=== PATIENT | female | born 1965 | race Caucasian/White ===

== ENCOUNTER 2018-04-14 14:04 | Outpatient (CLI) | payer BC ==
--- NOTE | 2018-04-14 14:59 | RAD ---
RIGHT KNEE FOUR VIEWS: History: Anterior and lateral knee pain. FINDINGS/IMPRESSION: No fracture, dislocation, or bony destruction is identified. No significant osteophytosis is identifi ed. POS: C
== END 2018-04-14 14:05 | disposition home or self-care (01) ==
LOC: SCSRAD 14:04
PROVIDERS: ATTEND Family Medicine
DX: M25.561 Pain in right knee (principal)

== ENCOUNTER 2018-08-14 11:55 | Outpatient (CLI) | payer BC | END 2018-08-14 11:56 | disposition home or self-care (01) | LOC: BICMAMMO 11:55 | PROVIDERS: ATTEND Obstetrics & Gynecology | DX: Z12.31 Encounter for screening mammogram for malignant neoplasm of breast (principal) | CPT/HCPCS: 77063; 77067 ==

== ENCOUNTER 2019-07-03 08:14 | Outpatient (CLI) | payer BC ==
--- NOTE | 2019-07-03 09:57 | RAD ---
CHEST 2 VIEWS: Date: 07/03/19 HISTORY: Rheumatoid arthritis, M06.09. COMPARISON: None. FINDINGS: Lungs are clear. No pneumothorax or effusion. Cardiac silhouette and mediastinal contours within norm al limits. There is some scarring in the right lung apex. Right upper quadrant surgical clips. IMPRESSION: Right apical scar. Otherwise unremarkable exam. POS: CET
== END 2019-07-03 08:15 | disposition home or self-care (01) ==
LOC: BICRAD 08:14
PROVIDERS: ATTEND Internal Medicine Rheumatology
DX: M06.09 Rheumatoid arthritis without rheumatoid factor, multiple sites (principal); L90.5 Scar conditions and fibrosis of skin
CPT/HCPCS: 71046

== ENCOUNTER 2019-08-17 08:22 | Outpatient (CLI) | payer BC ==
--- NOTE | 2019-08-17 08:56 | MMO ---
Bilateral MAMMO Bilat Screen [facility]. CLINICAL HISTORY: Patient is 54 years old and is seen for screening. The patient has no family history of breast cancer. The patient has no personal history of cancer. VIEWS: The views performed were: bilateral craniocaudal with tomosynthesis and bilateral mediolateral oblique with tomosynthesis. FILMS COMPARED: The present examination has been compared to prior imaging studies performed at [facility] on 08/24/2013, 12/28/2014, 08/13/2017 and 08/14/2018. This study has been interpreted with the assistance of computer-aided detection. MAMMOGRAM FINDINGS: There are scattered fibroglandular densities. There are no suspicious masses, suspicious calcifications, or new areas of architectural distortion. IMPRESSION: THERE IS NO MAMMOGRAPHIC EVIDENCE OF MALIGNANCY. A ROUTINE FOLLOW-UP MAMMOGRAM IN 1 YEAR IS RECOMMENDED. THE RESULTS OF THIS EXAM WERE SENT TO THE PATIENT. ACR BI-RADS Category 1 - Negative MAMMOGRAPHY NOTE: 1. A negative mammogram report should not delay a biopsy if a dominant of clinically suspicious mass is present. 2. Approximately 10% to 15% of breast cancers are not detected by mammography. 3. Adenosis and dense breasts may obscure an underlying neoplasm. Reported by: JULISSA MANSFIELD MD Electonically Signed: [id number]
== END 2019-08-17 08:23 | disposition home or self-care (01) ==
LOC: BICMAMMO 08:22
PROVIDERS: ATTEND Family Medicine
DX: Z12.31 Encounter for screening mammogram for malignant neoplasm of breast (principal)
CPT/HCPCS: 77063; 77067

== ENCOUNTER 2020-08-17 10:21 | Outpatient (CLI) | payer BC ==
--- NOTE | 2020-08-17 11:20 | MMO ---
Bilateral MAMMO Bilat Screen [facility]. CLINICAL HISTORY: Patient is 55 years old and is seen for screening. The patient has no family history of breast cancer. The patient has no personal history of cancer. VIEWS: The views performed were: bilateral craniocaudal with tomosynthesis and bilateral mediolateral oblique with tomosynthesis. FILMS COMPARED: The present examination has been compared to prior imaging studies performed at [facility] on 12/28/2014, 08/13/2017, 08/14/2018 and 08/17/2019. This study has been interpreted with the assistance of computer-aided detection. MAMMOGRAM FINDINGS: There are scattered fibroglandular densities. There are no suspicious masses, suspicious calcifications, or new areas of architectural distortion. IMPRESSION: THERE IS NO MAMMOGRAPHIC EVIDENCE OF MALIGNANCY. A ROUTINE FOLLOW-UP MAMMOGRAM IN 1 YEAR IS RECOMMENDED. THE RESULTS OF THIS EXAM WERE SENT TO THE PATIENT. ACR BI-RADS Category 1 - Negative MAMMOGRAPHY NOTE: 1. A negative mammogram report should not delay a biopsy if a dominant of clinically suspicious mass is present. 2. Approximately 10% to 15% of breast cancers are not detected by mammography. 3. Adenosis and dense breasts may obscure an underlying neoplasm. Reported by: VIOLA POWERS MD Electonically Signed: [id number]
== END 2020-08-17 10:22 | disposition home or self-care (01) ==
LOC: BICMAMMO 10:21
PROVIDERS: ATTEND Family Medicine
DX: Z12.31 Encounter for screening mammogram for malignant neoplasm of breast (principal)
CPT/HCPCS: 77063; 77067

== ENCOUNTER 2022-05-09 15:01 | Outpatient (CLI) | payer BC | END 2022-05-09 15:02 | disposition home or self-care (01) | LOC: CTENTCT 15:01 | PROVIDERS: ATTEND Student in an Organized Health Care Education/Training Program | DX: J32.9 Chronic sinusitis, unspecified (principal) | CPT/HCPCS: 70486 ==

== ENCOUNTER 2022-10-24 09:21 | Outpatient (CLI) | payer BC | END 2022-10-24 09:22 | disposition home or self-care (01) | LOC: BICRAD 09:21 | PROVIDERS: ATTEND Family Medicine | DX: S99.922A Unspecified injury of left foot, initial encounter (principal); S92.525A Nondisplaced fracture of middle phalanx of left lesser toe(s), initial encounter for closed fracture ==

== ENCOUNTER 2023-01-16 14:07 | Outpatient (CLI) | payer BC | END 2023-01-16 14:08 | disposition home or self-care (01) | LOC: BICMAMMO 14:07 | PROVIDERS: ATTEND Family Medicine | DX: Z12.31 Encounter for screening mammogram for malignant neoplasm of breast (principal) | CPT/HCPCS: 77063; 77067 ==

== ENCOUNTER 2023-04-17 08:39 | Outpatient (CLI) | payer BC | END 2023-04-17 08:40 | disposition home or self-care (01) | LOC: BICMRI 08:39 | PROVIDERS: ATTEND Psychiatry & Neurology Neurology | DX: M05.89 Other rheumatoid arthritis with rheumatoid factor of multiple sites (principal) | CPT/HCPCS: 72148 ==

== ENCOUNTER 2023-09-04 11:10 | Outpatient (CLI) | payer BC | END 2023-09-04 11:11 | disposition home or self-care (01) | LOC: BICRAD 11:10 | PROVIDERS: ATTEND Internal Medicine Rheumatology | DX: M17.0 Bilateral primary osteoarthritis of knee (principal); M19.011 Primary osteoarthritis, right shoulder; M19.012 Primary osteoarthritis, left shoulder | CPT/HCPCS: 73565 ==

== ENCOUNTER 2024-07-10 14:18 | Outpatient (CLI) | payer BC | END 2024-07-10 14:19 | disposition home or self-care (01) | LOC: BICMAMMO 14:18 | PROVIDERS: ATTEND Internal Medicine Rheumatology | DX: M81.0 Age-related osteoporosis without current pathological fracture (principal); M85.851 Other specified disorders of bone density and structure, right thigh; M85.852 Other specified disorders of bone density and structure, left thigh | CPT/HCPCS: 77080 ==

== ENCOUNTER 2025-07-12 13:59 | Outpatient (CLI) | payer BC | END 2025-07-12 14:00 | disposition home or self-care (01) | LOC: BICMAMMO 13:59 | PROVIDERS: ATTEND Family Medicine | DX: Z12.31 Encounter for screening mammogram for malignant neoplasm of breast (principal) | CPT/HCPCS: 77063; 77067 ==